=== PATIENT | female | born 1970 ===

== ENCOUNTER 2016-08-04 09:48 | Day surgery (SDC) | payer OTHER ==
[2016-08-04 10:31] VITALS: BMI 31.1
[2016-08-04] MEDS ORDERED: Propofol 10 mg/ml Inj (20 ML) ONE (13:28)
[2016-08-04] MEDS ORDERED: Lactated Ringer's 500 ML IV ONE ×2 (13:29)
[2016-08-04] MEDS ORDERED: Lactated Ringer's 1,000 ML IV SCH (13:45)
[2016-08-04 14:05] VITALS: TEMP 98.6
[2016-08-04 14:26] VITALS: PULSE 68
[2016-08-04 14:30] VITALS: BP 101/62; RESP 13; O2SAT 99
== END 2016-08-04 14:55 | disposition home or self-care (01) ==
LOC: C.ENDO 09:48
PROVIDERS: ATTEND Internal Medicine Gastroenterology
DX: Z12.11 Encounter for screening for malignant neoplasm of colon (principal); K64.8 Other hemorrhoids

== ENCOUNTER 2017-02-19 12:48 | Emergency (ER) | payer OTHER ==
[2017-02-19 12:49] VITALS: BMI 31.1
[2017-02-19 12:58] VITALS: TEMP 98.8
--- NOTE | 2017-02-19 13:47 | C.PDOC ---
History Of Present Illness 46 year old female presents to the ED with daughter for evaluation of intermittent numbness to bilateral arms and left-sided facial region which began around 1.5 weeks ago. Patient also complains of new onset neck pain for the past week. Patient states she is currently scheduled for an appointment with her PMD, Dr. Montenegro, on 03/08. Patient is right hand dominant and denies headache, vision change, nausea, vomiting. Time Seen by Provider: 02/19/17 13:22 Chief Complaint (Nursing): Weakness/Neurological Deficit History Per: Patient, Family History/Exam Limitations: no limitations Onset/Duration Of Symptoms: Intermittent Episodes, Other (1.5 weeks ) Current Symptoms Are (Timing): Still Present Seizure Or Post-ictal Symptoms: None Fall Associated With With Symptoms: No Additional History Per: Patient, Family - Symptoms Of CVA Associated Symptoms: denies: New Vision Deficit(Left), New Vision Deficit(Right) Past Medical History Reviewed: Historical Data, Nursing Documentation, Vital Signs Vital Signs: Last Vital Signs Temp 98.8 F 02/19/17 12:57 Pulse 75 02/19/17 14:58 Resp 20 02/19/17 14:58 BP 109/71 02/19/17 14:58 Pulse Ox 99 02/19/17 14:58 - Medical History PMH: Back Problems, Colonic Polyps, Hypothyroidism Denies: Chronic Kidney Disease Surgical History: Family History: States: Unknown Family Hx - Social History Hx Alcohol Use: No Hx Substance Use: No Review Of Systems Eyes: Negative for: Vision Change Gastrointestinal: Negative for: Nausea, Vomiting Musculoskeletal: Positive for: Neck Pain Neurological: Positive for: Numbness (bilateral arms, left facial region ). Negative for: Headache Physical Exam - Physical Exam Appears: Non-toxic, No Acute Distress Skin: Normal Color, Warm, Dry Head: Atraumatic, Normacephalic Eye(s): bilateral: Normal Inspection Oral Mucosa: Moist Neck: Paracervical Tenderness (right-sided, with localized muscle spasms ), Supple Chest: Symmetrical, No Deformity, No Tenderness Cardiovascular: Rhythm Regular, No Murmur Respiratory: Normal Breath Sounds, No Rales, No Rhonchi, No Wheezing Extremity: Normal ROM, Capillary Refill (less than 2 seconds ) Neurological/Psych: Oriented x3, Normal Speech, Normal Cognition Gait: Unable To Assess ED Course And Treatment O2 Sat by Pulse Oximetry: 98 (on RA) Pulse Ox Interpretation: Normal - CT Scan/US CT HEAD Other Rad Studies (CT/US): Read By Radiologist, Radiology Report Reviewed CT/US Interpretation: IMPRESSION: No acute intracranial pathology identified. Progress Note: CT Head ordered and reviewed. Reevaluation Time: 14:48 Reassessment Condition: Unchanged (ADVISED FU PMD SCHEDULED.) Disposition Counseled Patient/Family Regarding: Studies Performed, Diagnosis, Need For Followup - Disposition Disposition: HOME/ ROUTINE Disposition Time: 14:48 Condition: GOOD Instructions: Paresthesia (ED) Forms: [employer] (Kenyan) Print Language: MONGOLIAN - Clinical Impression Clinical Impression: Paresthesia - Scribe Statement The provider has reviewed the documentation as recorded by the Scribe (Yajaira Brar) Provider Attestation: All medical record entries made by the Scribe were at my direction and personally dictated by me. I have reviewed the chart and agree that the record accurately reflects my personal performance of the history, physical exam, medical decision making, and the department course for this patient. I have also personally directed, reviewed, and agree with the discharge instructions and disposition.
--- NOTE | 2017-02-19 14:24 | CT ---
PROCEDURE: CT HEAD WITHOUT CONTRAST. HISTORY: HAND PARESTHESIA, L FACIAL PARESTHESIA COMPARISON: None available. TECHNIQUE: Axial computed tomography images were obtained through the head/brain without intravenous contrast. Radiation dose: Total exam DLP = 758.94 mGy-cm. This CT exam was performed using one or more of the following dose reduction techniques: Automated exposure control, adjustment of the mA and/or kV according to patient size, and/or use of iterative reconstruction technique. FINDINGS: HEMORRHAGE: No intracranial hemorrhage. BRAIN: No mass effect or edema. No atrophy or chronic microvascular ischemic changes. Please note that MRI with diffusion imaging is more sensitive in the detection of acute ischemic event. VENTRICLES: No hydrocephalus. CALVARIUM: Unremarkable. PARANASAL SINUSES: Unremarkable as visualized. No significant inflammatory changes. MASTOID AIR CELLS: Unremarkable as visualized. No inflammatory changes. OTHER FINDINGS: None. IMPRESSION: No acute intracranial pathology identified.
[2017-02-19 14:58] VITALS: BP 109/71; PULSE 75; RESP 20
[2017-02-19 15:04] VITALS: O2SAT 98
== END 2017-02-19 15:12 | disposition home or self-care (01) ==
LOC: C.ER 12:48
DX: R20.2 Paresthesia of skin (principal)